=== PATIENT | male | born 1990 | race Hispanic/Latino ===

== ENCOUNTER 2018-08-25 19:14 | Emergency (ER) | payer SELFPAY ==
[~2018-08-25] VITALS: Ht 160 cm; Wt 86.4 kg
[~2018-08-25 19:14] MED LIST: DENIES CURRENT MEDS; ULTRAM50 M1 PO
[2018-08-25 19:50] LABS: HEMATOCRIT 39.2 % (39.0-50.0); HEMOGLOBIN 13.2 g/dl (14.0-18.0); IMMATURE GRANULOCYTES 0.5 % (0.0-5.0); MEAN CELL VOLUME 89.9 fL CALC (80.0-100.0); MEAN CORPUSCULAR HGB 30.3 pG CALC (26.0-32.0); MEAN CORPUSCULAR HGB CONC 33.7 g/L CALC (32.0-36.0); NEUT# 8.49 thou/uL (1.82-7.42); RED BLOOD COUNT 4.36 mill/uL (4.70-6.10); RED CELL DISTRI WIDTH 11.9 % (11.5-15.5)
[2018-08-25] MEDS ORDERED: LORTAB 5/3255 MG PO (20:25)
[2018-08-25] MEDS ORDERED: MOTRIN800 MG PO (20:25)
[2018-08-25] MEDS ORDERED: BIAXIN500 MG PO (20:25)
[2018-08-25 20:46] VITALS: BP 128/73
== END 2018-08-25 20:57 | disposition home or self-care (01) | DRG 562 ==
LOC: ED 19:14
PROVIDERS: Family Medicine
DX: S92.322A Displaced fracture of second metatarsal bone, left foot, initial encounter for closed fracture (principal); J18.9 Pneumonia, unspecified organism; W11.XXXA Fall on and from ladder, initial encounter; Y93.H2 Activity, gardening and landscaping; Y92.007 Garden or yard of unspecified non-institutional (private) residence as the place of occurrence of the external cause